=== PATIENT | female | born 1970 | race Hispanic/Latino ===

== ENCOUNTER 2017-06-04 22:52 | Emergency (ER) | payer SELFPAY ==
[~2017-06-04] VITALS: Ht 160 cm; Wt 87.4 kg
[2017-06-04 23:15] VITALS: BP 142/83; PULSE 79; RESP 16; O2SAT 100
--- NOTE | 2017-06-05 00:11 | ED.REPORT ---
HPI-Head Prob / Injury Date of Service Jun 05, 2017 ED Provider: Odell Rai MD A 47 year old female with a history of hypertension presents to the ED complaining of right-sided facial swelling. The pt fell at home last night at approximately 00:00, hitting the right side of her face. She lost consciousness at that time but did not seek medical evaluation. The pt noticed facial bruising and swelling today which persistently worsened throughout the day. The swelling has become severe enough that the pt is no longer able to open her right eye. The pt admits to headache but denies nausea or vomiting. Nursing Notes Stated Complaint: FELL, RIGHT EYE SWOLLEN Chief Complaint: Head, Face, Neck Trauma Nursing Notes Reviewed: Yes Allergies: Coded Allergies: No Known Allergies (Unverified Allergy, Unknown, 06/04/17) General Time Seen by Provider: 00:11 Chief Complaint Other (Right-sided facial swelling) Hx Obtained From: Patient Arrived By: Walk-in Onset Occurred: 1 day ago Symptom Duration: Since onset Recent Healthcare: No recent doctor visit, No recent hospitalization Similar Sx Previous: No Past Medical History Past Medical History Reports: Hypertension Past Surgical History Reports: Tubal ligation Smoking History Current Every Day Smoker Social History Alcohol Use: "Social" Drug Use: THC Ambulatory Status Independent Review of Systems Review of Systems Note: right-sided facial swelling/bruising GI: Denies: Abdominal pain, Vomiting Musculoskeletal: Denies: Back pain, Neck pain Skin: Denies Rash Neurologic: Reports: Change LOC (possible), Headache Complete sys rev & neg: except as marked. Physical Exam Initial Vital Signs Vital Signs (First) Date Time Temp Pulse Resp B/P Pulse Ox O2 Delivery O2 Flow Rate FiO2 06/04/17 23:15 36.7 79 16 142/83 100 Room Air Initial VS: Reviewed General/Constitutional: Awake, Alert Head / Eyes: Normocephalic, PERRL, EOMI abrasion on face consistent with a day old injury, spanning from the right brow to the right lateral cheek and the chin right eye swollen shut but can be opened eye is able to move eye is not bloody or proptotic ENT: Airway patent, Mucous membranes moist Neck: Supple, Full range of motion neck mild tender in the paraspinous muscles Neurologic: Oriented X3, Speech NL, No motor deficits, No sensory deficits Respiratory / Chest: Atraumatic, Breath sounds NL, Breath sounds = bilat, No respiratory distress Cardiovascular: Heart rate NL, Regular rhythm, Heart sounds NL Upper Extremity / MS: Atraumatic, Full range of motion Lower Extremity / Pelvis / MS: Atraumatic, Full range of motion Skin: No rash, Warm, Dry Psychiatric: Affect NL, Mood NL Abdomen: Atraumatic, Soft, Non-tender Back: Atraumatic, Full range of motion Interpretation & Diagnostics Interpretation & Diagnostics: CT Maxillofacial: IMPRESSION: Subtle right distal nasal bone fracture. Right-sided superficial soft tissue trauma. CT Head Interpretation IMPRESSION: No acute intracranial traumatic abnormality. Other findings above. Interpretation / Wet Read by: Interpret - Radiologist CT C-Spine Interpretation IMPRESSION: No acute fractures or malalignment in the cervical spine. Interpretation / Wet Read by: Interpret - Radiologist Re-Eval/Medical Decision Med Decision/Clinical Course 47-year-old presents twenty-four hours after face injury in a fall. Abrasion down the right side of her face with significant edema and swelling of the periorbital tissue. I appears intact underlying. No proptosis. CAT scan of head and face and neck all negative for significant findings. Minor nasal fracture noted. Discharged home in stable condition with instructions to go to the abraded areas with bacitracin frequently and prevent crusting and scabbing. Follow-up with PCP. Prompt return if worse. Source of Hx: Old records Re-Evaluation/Progress : Time of Eval: 02:04 Patient Status: Condition improved Re-Evaluation/Progress Note: Pt rechecked, who is comfortable. The diagnosis and plan for discharge are discussed. The pt understands and agrees with the plan. All questions are addressed at this time. Counseled Regarding: Diagnosis, Lab results, Need for follow-up, When/why to return to ED Discharge & Departure Primary Impression: Contusion Encounter type: initial encounter Contusion area: head Contusion of head detail: unspecified part of head Qualified Code: S00.93XA - Contusion of unspecified part of head, initial encounter Additional Impressions: Cervical strain Encounter type: initial encounter Qualified Code: S16.1XXA - Strain of muscle, fascia and tendon at neck level, initial encounter Abrasion of face Encounter type: initial encounter Qualified Code: S00.81XA - Abrasion of other part of head, initial encounter Nasal fracture Encounter type: initial encounter Fracture type: closed Qualified Code: S02.2XXA - Fracture of nasal bones, initial encounter for closed fracture Disposition: Home All VS Reviewed: Yes Condition: Stable Patient Instructions: Abrasion (ED), Cervical Strain (ED), Concussion (ED) Additional Instructions: There is no evidence of bleeding in the brain, or other significant findings. You do have a minor nasal fracture. The abrasions will become infected if not treated. Begin bacitracin, thin skim four times daily to keep the area moist and prevent scabbing and crusting. Follow-up with your doctor in the office. Refer to head injury/concussion instructions for additional precautions. Return for repetitive vomiting or other new symptoms of concern. Referrals: [facility] Scribe Attestation Portions of this note were transcribed by Kayli Evans. I, Dr. Rai personally performed the history, physical exam and medical decision-making; I reviewed and confirmed the accuracy of the information in the transcribed note. copies to: [facility] Odlel Rai MD Jun 05, 2017 00:11 KAYLI EVANS Jun 05, 2017 00:58
--- NOTE | 2017-06-05 08:06 | DRSVH ---
PROCEDURE: CT BRAIN WITHOUT CONTRAST ([id number]) INDICATIONS: fall, facial injury and loc TECHNIQUE: Noncontrast 4.5 mm thick angled axial sections acquired from the foramen magnum to the vertex, with c oronal reformats. COMPARISON: None. FINDINGS: Image quality: Excellent. CSF spaces: Basal cisterns are patent. No extra-axial fluid collections. Ventricles are normal in size and shape. Brain: No midline shift. No intracranial masses or hemorrhage. Rick-white matter interface is norm al. Skull and face: Calvarium and visualized facial bones are intact, without suspicious lesions. Right frontal/periorbital soft tissue contusion. Sinuses: Visualized sinuses and mastoids are clear. IMPRESSION: 1. No acute intracranial abnormalities. 2. Right frontal/periorbital soft tissue contusion. No significant discrepancy with the silk screen printer helper radiology preliminary report. Dictated by: Sj Roblero M.D. on 06/05/2017 at 8:03 Approved by: Sj Roblero M.D. on 06/05/2017 at 8:04
--- NOTE | 2017-06-05 08:07 | DRSVH ---
PROCEDURE: CT CERVICAL SPINE WITHOUT CONTRAST ([id number]) INDICATIONS: fall, facial injury and loc TECHNIQUE: Noncontrast 3 mm thick sections acquired from the skull base to the T4 level. Sagittal and coronal r eformats were then constructed. For radiation dose reduction, the following was used: automated exp osure control, adjustment of mA and/or kV according to patient size. COMPARISON: None. FINDINGS: Image quality: Excellent. Bones: No fractures or dislocations. Visualized superior ribs are intact. There is mild/moderate d egenerative disc disease at C5-C6 and C6-C7. Soft tissues: Prevertebral soft tissues are normal in thickness. No paravertebral hematomas. No ap ical pneumothoraces. IMPRESSION: No fracture in cervical spine. No significant discrepancy with the night filler radiology preliminary report. Dictated by: Sj Roblero M.D. on 06/05/2017 at 8:04 Approved by: Sj Roblero M.D. on 06/05/2017 at 8:05
--- NOTE | 2017-06-05 08:11 | DRSVH ---
PROCEDURE: CT FACE WITHOUT CONTRAST ([id number]) INDICATIONS: fall, facial injury and loc TECHNIQUE: Noncontrast 1.5 mm thick axial images acquired from the mandible through the frontal sinuses, with co david and sagittal reformatting. For radiation dose reduction, the following was used: automated ex posure control. COMPARISON: None. FINDINGS: Image quality: Excellent. Bones and teeth: Possible nondisplaced right nasal bone fracture. Nasal septum is intact. Orbital w alls are intact. Sinus rossi show no fracture or deformity. Visualized portions of the mandible dem onstrate no fractures or subluxation. Zygomatic arches are intact. Pterygoid plates are intact. Vi sualized portions of the skull base and auditory canals are intact. Sinuses: Paranasal sinuses are aerated, without fluid levels, mucosal thickening, or mucoceles. Mas toid air cells are aerated. Soft tissues: Right frontal/periorbital soft tissue swelling consistent with contusion. No mass or f luid collection. No enlarged lymph nodes. No soft tissue lacerations or debris. Vascular: Visualized vascular structures appear normal in the absence of contrast. Bony vascular fo ramina and canals are intact. IMPRESSION: Possible nondisplaced right nasal bone fracture. There is soft tissue contusion in the ri t frontal/periorbital region. No significant discrepancy with the business excellence leader radiology preliminary report. Dictated by: Sj Roblero M.D. on 06/05/2017 at 8:05 Approved by: Sj Roblero M.D. on 06/05/2017 at 8:09
== END 2017-06-05 02:10 | disposition home or self-care (01) ==
LOC: SED 22:52
DX: S02.2XXA Fracture of nasal bones, initial encounter for closed fracture (principal); S00.83XA Contusion of other part of head, initial encounter; S00.81XA Abrasion of other part of head, initial encounter; S16.1XXA Strain of muscle, fascia and tendon at neck level, initial encounter; W01.198A Fall on same level from slipping, tripping and stumbling with subsequent striking against other object, initial encounter; Y93.89 Activity, other specified; Y92.019 Unspecified place in single-family (private) house as the place of occurrence of the external cause; Y99.8 Other external cause status; I10 Essential (primary) hypertension; F17.200 Nicotine dependence, unspecified, uncomplicated